=== PATIENT | male | born 1955 | race African-American/Black ===

== ENCOUNTER 2019-10-10 18:02 | Outpatient (CLI) | payer OTHER | END 2019-10-10 23:59 | disposition critical access hospital (66) | LOC: EMS 18:02 | PROVIDERS: ATTEND Surgery | DX: M54.2 Cervicalgia (principal); M54.5 Low back pain; V89.2XXA Person injured in unspecified motor-vehicle accident, traffic, initial encounter; Y92.414 Local residential or business street as the place of occurrence of the external cause | CPT/HCPCS: A0425; A0429 ==

== ENCOUNTER 2019-10-10 18:39 | Emergency (ER) | payer OTHER ==
[2019-10-10 18:45] VITALS: BP 150/76
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
[2019-10-10] MEDS ORDERED: IBUPROFEN 800 MG TABLET PO STA (20:14)
== END 2019-10-10 20:32 | disposition home or self-care (01) ==
LOC: EDUNIT# → ED 18:39
DX: S39.012A Strain of muscle, fascia and tendon of lower back, initial encounter (principal); S16.1XXA Strain of muscle, fascia and tendon at neck level, initial encounter; V43.52XA Car driver injured in collision with other type car in traffic accident, initial encounter; Y92.410 Unspecified street and highway as the place of occurrence of the external cause; Z79.82 Long term (current) use of aspirin
CPT/HCPCS: 72100; 72125; 99282; 99284; A9270